=== PATIENT | male | born 1990 | race Caucasian/White ===

== ENCOUNTER 2023-01-20 21:08 | Emergency (ER) | payer OTHER, SELFPAY ==
[2023-01-20 21:14] VITALS: BP 157/83; PULSE 82; RESP 16; TEMP 37.3; O2SAT 98; BMI 33.0
--- NOTE | 2023-01-20 21:27 | ED_ITS ---
HPI - Animal Bite General Chief Complaint: Animal Bite Stated Complaint: Dog bite Time Seen by Provider: 01/20/23 21:27 Source: patient Mode of arrival: Ambulatory History of Present Illness HPI narrative: 32-year-old male nonsmoker with noncontributory medical history presents with significant other and a chief complaint of multiple puncture wounds on forearms as a result of dog bite prior to arrival. He was at a local park with his dog when it became entangled in a fight with at least 1 other dog. The patient attempted to separate the 2 and his dog bit him on his forearms and hands causing multiple small puncture wounds and a few slightly larger. He has full range of motion but some pain in his left hand. His tetanus is current. He denies other injury and is otherwise well and free of complaint Related Data Previous Rx's Medication Instructions Recorded amoxicillin 875 mg-potassium 1 tab PO Q12H #20 tabs 01/20/23 clavulanate 125 mg tablet Allergies Allergy/AdvReac Type Severity Reaction Status Date / Time No Known Drug Allergies Allergy Verified 01/20/23 21:14 Review of Systems Review of Systems Narrative: GENERAL: Denies chills, fatigue, malaise, fever, sweats. HEENT: Denies sinus pain, ear pain, sore throat, difficulty swallowing, dizziness. RESPIRATORY: Denies dyspnea, cough, wheezing, hemoptysis, sputum. CARDIOVASCULAR: Denies chest pain, palpitations, orthopnea, edema, GASTROINTESTINAL: Denies nausea, vomiting, abdominal pain, diarrhea, constipation, melena. : Denies dysuria, frequency, incontinence, hematuria, urinary retention. MUSCULOSKELETAL: denies weakness, joint pain, or bony pain SKIN: See HPI NEUROLOGIC: Denies weakness, headache, numbness, change in speech, confusion, seizures, incoordination. PSYCHIATRIC: No concerning psychosocial issues. 12 point review of systems is negative except for those stated above Patient History Social History Smoking Status: Never smoker Smoking Status: Never smoker alcohol intake frequency: 0-2 drinks per day Substance Use Type: marijuana Exam Narrative Exam Narrative: GENERAL: [32] year old patient appears stated age. Well-developed patient, in mild distress. HEAD: Atraumatic. Normocephalic. EYES: Pupils equal round and reactive. Extraocular motions intact. No scleral icterus. No injection or drainage. ENT: Nose without bleeding, purulent drainage. Throat without erythema, tonsillar hypertrophy or exudate. Airway patent. NECK: Trachea midline. Non tender CARDIOVASCULAR: Regular rate and rhythm without murmurs, gallops, or rubs. RESPIRATORY: Clear to auscultation. Breath sounds equal bilaterally. No wheezes, rales, or rhonchi. GASTROINTESTINAL: Abdomen soft, non-tender, nondistended. EXTREMITIES: Multiple small puncture wounds on forearms a few are slightly larger, most notably on the palmar aspect of the left hand just distal to carpals is 1.5 cm with some exposed subcu fat and a 2nd 1 cm x 0.25 cm on the medial aspect of right forearm No edema or joint tenderness. BACK: Nontender without deformity or crepitance. No flank tenderness. NEURO: AOx3. SKIN: No rash or erythema of visible areas Initial Vital Signs Initial Vital Signs: Vital Signs Temperature 99.1 F 01/20/23 21:14 Pulse Rate 82 01/20/23 21:14 Respiratory Rate 16 01/20/23 21:14 Blood Pressure 157/83 H 01/20/23 21:14 Pulse Oximetry 98 01/20/23 21:14 Oxygen Delivery Method Room Air 01/20/23 21:14 Procedures Laceration Repair Laceration 1: Site: hand Side (If applicable): left Size (cm): 2.0 Description: stellate Depth: involves muscle layer Local Anesthetic: lidocaine 2% Amount of anesthesia used (mL): 3 Pre-repair: wound explored and cleansed with chlorhexadine Skin layer closed with: nylon Skin layer suture size: 4-0 Number of sutures: 3 Technique: simple, interrupted Laceration 2: Site: upper extremity Side (If applicable): right Size (cm): 1.0 Description: stellate Depth: simple, single layer Local Anesthetic: lidocaine 2% Amount of anesthesia used (mL): 3 Pre-repair: wound explored and cleansed with chlorhexadine Skin layer closed with: nylon Skin layer suture size: 4-0 Number of sutures: 3 Technique: simple, interrupted [facility] Procedure Name of Procedure: Two other smaller lacerations though slightly gape on left forearm requiring 1 suture a piece, 4 0 nylon, simple interrupted and anesthetized with lidocaine 2% Course Orders Ordered: Discontinued Medications Amoxicillin/Clavulanate Potassium (Amoxicillin/Clav 875/125 Mg) 1 tab PO NOW ONE Stop: 01/20/23 21:31 Last Admin: 01/20/23 21:57 Dose: 1 tab Documented By: RUBIO Vital Signs Vital signs: Vital Signs - 8 hr 01/20/23 21:14 Temperature 99.1 F Pulse Rate 82 Respiratory Rate 16 Blood Pressure 157/83 H Pulse Oximetry 98 Oxygen Delivery Method Room Air MDM - Animal Bite MDM Narrative Medical decision making narrative: [32] year old patient presents with wounds from dog bite Multiple etiologies for patient's symptoms considered including, but not limited to: [Wounds from dog bite versus other] Prior Charts reviewed in our EMR Primary Historian: patient Imaging reviewed: No obvious fracture or foreign body Patient's symptoms improved over duration of stay with above-stated therapies. Wounds cleaned, antibiotics administered, patient states tetanus is current. A few sutures placed in gaping wounds. X-ray with no definite abnormality, emerson mmended splinting, particularly left hand, however patient refused despite discussion of risks benefit. Patient appropriate for discharge and close follow-up. Return precautions discussed including increasing pain, redness, swelling, drainage, fever or shaking chills as well as any other concerning symptoms Findings and discharge diagnosis discussed with patient/family followed by verbalization of understanding Return precautions discussed with patient/family whom verbalize understanding of diagnosis and plan Discharge Plan Departure Patient Disposition: Home Clinical Impression: Dog bite Instructions: DI for Dog Bite Activity Restrictions/Additional Instructions: *You have been diagnosed with [dog bite with multiple puncture wounds, as we discussed a few with (8) loose approximating sutures.] *What to do: *Please continue to take your regular medications as directed. [x ] New medication prescriptions sent to your pharmacy: [[facility] in [place] ] [ ] New medication written as a paper prescription [ ] No new medications given *Please follow up with your primary care provider in 2-3 days, call for an appointment. Let them know you were seen in the Emergency Department and that we ask that you be seen in follow up. We will electronically transmit a record of today's note if your PCP is in our system Please keep the wound clean and dry to the best of your ability. Please monitor for signs of infection such as redness to the skin or increasing pain. Have the sutures/rick removed by your doctor in about 7 days. If you are unable to get into your doctor, we would be happy to remove the sutures/rick in that same timeframe. *If you do not have a primary care provider please contact the [facility] Resource line at [phone]. They will ask some questions about your medical history and help get you set up with a doctor in the community. *Return to Emergency Department if you should have any new, worsening or concerning symptoms, such as [fever greater than 101 F, shaking chills, worsening pain, persistent vomiting or other bothersome symptoms] Prescriptions: New amoxicillin-pot clavulanate 875-125 mg tablet 1 tab PO Q12H Qty: 20 0RF Stand Alone Forms: Patient Portal/API
--- NOTE | 2023-01-20 21:41 | PC.NURSE ---
Patient has multiple puncture wounds to bilateral arms and hands. Most significant is 1cm by 0.25cm wound on inner right forearm and jagged wound to left palm of hand.
[2023-01-20] MEDS: AMOXICILLIN/CLAV 875/125 MG 1 TAB PO (21:57)
--- NOTE | 2023-01-21 00:21 | DI.RAD.S_ITS ---
PROCEDURE: XR HAND LT MIN 3V INDICATIONS: dog bite TECHNIQUE: 3 views of the hand(s) acquired. COMPARISON: None. FINDINGS: Bones: No fractures or dislocations. Carpal bones are normally aligned. No suspicious bony lesions. Note is made of slight irregularity of the cortical margin at the thenar base of the 2nd metacarpal bone. Soft tissues: No suspicious soft tissue calcifications. IMPRESSION: A definite fracture or foreign body is not seen but there is slight irregularity at the base of the 2nd metacarpal bone, marked by aero on the montage image. Dictated by: Keanu Ruiz M.D. on 01/21/2023 at 1:29 Approved by: Keanu Ruiz M.D. on 01/21/2023 at 1:31
[2023-01-21] MEDS: LIDOCAINE 1% 20 ML (00:28)
[2023-01-21 01:20] VITALS: BP 128/58; PULSE 64; RESP 18; TEMP 37; O2SAT 97
== END 2023-01-21 01:23 | disposition home or self-care (01) ==
PROVIDERS: Emergency Provider Emergency Medicine
DX: S51.852A Open bite of left forearm, initial encounter (principal); W54.0XXA Bitten by dog, initial encounter
CPT/HCPCS: 12002; 73130; 99283